=== PATIENT | female | born 1975 ===

== ENCOUNTER 2024-06-18 06:19 | Day surgery (SDC) | payer BC, SELFPAY | END 2024-06-18 10:21 | disposition home or self-care (01) | LOC: GI 06:19 | PROVIDERS: ATTENDING PHYSICIAN Internal Medicine Gastroenterology | DX: D50.9 Iron deficiency anemia, unspecified (principal); K64.8 Other hemorrhoids; K44.9 Diaphragmatic hernia without obstruction or gangrene; K22.89 Other specified disease of esophagus; K25.9 Gastric ulcer, unspecified as acute or chronic, without hemorrhage or perforation; K29.50 Unspecified chronic gastritis without bleeding; K22.70 Barrett's esophagus without dysplasia; K31.89 Other diseases of stomach and duodenum | CPT/HCPCS: 43239; 45378; 88305; 88342 ==

== ENCOUNTER 2024-08-06 06:24 | Day surgery (SDC) | payer BC, SELFPAY | END 2024-08-06 13:44 | disposition home or self-care (01) | LOC: GI 06:24 | PROVIDERS: ATTENDING PHYSICIAN Internal Medicine Gastroenterology | DX: K44.9 Diaphragmatic hernia without obstruction or gangrene (principal); K22.70 Barrett's esophagus without dysplasia; K27.0 Acute peptic ulcer, site unspecified, with hemorrhage | CPT/HCPCS: 43239; 88305 ==

== ENCOUNTER 2024-09-30 06:27 | Day surgery (SDC) | payer BC, SELFPAY | END 2024-09-30 10:11 | disposition home or self-care (01) | LOC: GI 06:27 | PROVIDERS: ATTENDING PHYSICIAN Internal Medicine Gastroenterology | DX: K25.7 Chronic gastric ulcer without hemorrhage or perforation (principal); K25.9 Gastric ulcer, unspecified as acute or chronic, without hemorrhage or perforation; K22.70 Barrett's esophagus without dysplasia | CPT/HCPCS: 43239; 88305; 88342 ==

== ENCOUNTER 2024-11-13 06:08 | Day surgery (SDC) | payer BC, SELFPAY ==
[2024-11-13 09:37] VITALS: BMI 33.9
[2024-11-13 09:38] VITALS: BMI 33.9
[2024-11-13 09:40] VITALS: BP 155/94
[2024-11-13 15:50] VITALS: BP 98/72
[2024-11-13 16:00] VITALS: BP 106/79
[2024-11-13 16:15] VITALS: BP 114/81
== END 2024-11-13 16:30 | disposition home or self-care (01) ==
LOC: GI 06:08
PROVIDERS: ATTENDING PHYSICIAN Internal Medicine Gastroenterology
DX: K92.9 Disease of digestive system, unspecified (principal); K25.9 Gastric ulcer, unspecified as acute or chronic, without hemorrhage or perforation; K31.89 Other diseases of stomach and duodenum; K86.9 Disease of pancreas, unspecified; R93.5 Abnormal findings on diagnostic imaging of other abdominal regions, including retroperitoneum; R93.2 Abnormal findings on diagnostic imaging of liver and biliary tract; K22.70 Barrett's esophagus without dysplasia
CPT/HCPCS: 43242; 43239; 88173; 88305